=== PATIENT | female | born 1970 ===

== ENCOUNTER 2017-01-16 01:02 | Emergency (ER) | payer MEDICAID ==
[2017-01-16 01:08] VITALS: PULSE 80; RESP 16; O2SAT 99
--- NOTE | 2017-01-16 01:35 | C.PDOC ---
History Of Present Illness 46 year old female presents to the ED with complaints of "not feeling well" with a cold and cough beginning earlier today. Patient denies diarrhea, nausea, or vomiting. Chief Complaint (Nursing): Flu-like Symptoms History Per: Patient History/Exam Limitations: no limitations Onset/Duration Of Symptoms: Hrs Current Symptoms Are (Timing): Still Present Sick Contacts (Context): None Associated Symptoms: denies: Nausea, Vomiting, Diarrhea Recent travel outside of the [place]: No Past Medical History Reviewed: Historical Data, Nursing Documentation, Vital Signs Vital Signs: Last Vital Signs Temp 97.6 F 01/16/17 01:05 Pulse 80 01/16/17 01:05 Resp 16 01/16/17 01:05 BP 127/86 01/16/17 01:05 Pulse Ox 99 01/16/17 03:17 Family History: States: Unknown Family Hx - Social History Hx Alcohol Use: Yes Hx Substance Use: No - Immunization History Hx Tetanus Toxoid Vaccination: No Hx Influenza Vaccination: No Hx Pneumococcal Vaccination: No Review Of Systems Constitutional: Positive for: Weakness (generalized weakness ). Negative for: Fever, Chills Cardiovascular: Negative for: Chest Pain, Palpitations Respiratory: Positive for: Cough. Negative for: Shortness of Breath Gastrointestinal: Negative for: Nausea, Vomiting, Abdominal Pain Physical Exam - Physical Exam Appears: Non-toxic, No Acute Distress Skin: Warm, Dry Head: Atraumatic, Normacephalic Eye(s): bilateral: Normal Inspection, PERRL, EOMI Ear(s): Bilateral: Normal Nose: Normal, No Discharge Oral Mucosa: Moist Throat: Normal, No Erythema, No Exudate Neck: Supple Chest: Symmetrical, No Deformity Cardiovascular: Rhythm Regular, No Murmur Respiratory: Normal Breath Sounds, No Rales, No Rhonchi, No Wheezing Gastrointestinal/Abdominal: Soft, No Tenderness, No Distention, No Guarding, No Rebound Neurological/Psych: Oriented x3 ED Course And Treatment - Laboratory Results Result Diagrams: 01/16/17 02:28 01/16/17 02:28 O2 Sat by Pulse Oximetry: 99 (RA) Progress Note: CXR and labs were ordered. Disposition Counseled Patient/Family Regarding: Diagnosis - Disposition Referrals: [facility] [Outside] Disposition: HOME/ ROUTINE Disposition Time: 03:16 Condition: STABLE Prescriptions: Ibuprofen [Motrin] 400 mg PO Q6 #20 tab Instructions: Viral Syndrome (ED) Forms: [employer] (Congolese) - POA Present On Arrival: None - Clinical Impression Clinical Impression: Viral illness - Scribe Statement The provider has reviewed the documentation as recorded by the Scribjennifer Gillette All medical record entries made by the Scribe were at my direction and personally dictated by me. I have reviewed the chart and agree that the record accurately reflects my personal performance of the history, physical exam, medical decision making, and the department course for this patient. I have also personally directed, reviewed, and agree with the discharge instructions and disposition.
[2017-01-16 02:35] LABS: BASO % 0.7 % (0.0-2.0); EOS # 0.1 K/uL (0.0-0.7); HEMATOCRIT 35.7 % (34.0-47.0); LYMPH # 1.1 K/uL (1.0-4.3); LYMPH % 24.4 % (20.0-40.0); MEAN CORPUSCULAR HEMOGLOBIN 30.3 pg (27.0-31.0); MEAN CORPUSCULAR HGB CONC 34.4 g/dL (33.0-37.0); MEAN PLATELET VOLUME 8.1 fL (7.2-11.7); MONO # 0.4 K/uL (0.0-0.8); MONO % 9.6 % (0.0-10.0); RED CELL DISTRIBUTION WIDTH 13.2 % (11.5-14.5); WHITE BLOOD COUNT 4.6 K/uL (4.8-10.8)
[2017-01-16 02:38] LABS: CHLORIDE 100 mmol/L (98-107); POTASSIUM 3.6 mmol/L (3.6-5.2); SODIUM 141 mmol/L (132-148)
[2017-01-16 02:40] LABS: GFR AFRICAN-AMERICAN > 60
[2017-01-16 02:41] LABS: ALKALINE PHOSPHATASE 68 U/L (38-126); ALT/SGPT 26 U/L (9-52); AST/SGOT 20 U/L (14-36); BILIRUBIN,TOTAL 0.5 mg/dL (0.2-1.3); BLOOD UREA NITROGEN 13 mg/dL (7-17); CARBON DIOXIDE 26 mmol/L (22-30); GLUCOSE,RANDOM 89 mg/dL (65-105); TOTAL PROTEIN 8.1 g/dL (6.3-8.3)
[2017-01-16 02:42] LABS: CALCIUM 9.1 mg/dl (8.6-10.4)
[2017-01-16 02:44] LABS: RBC URINE 3 /hpf (0-3); URINE BILIRUBIN NEGATIVE (NEGATIVE); URINE BLOOD 2+ (NEGATIVE); URINE COLOR Yellow (YELLOW); URINE GLUCOSE (UA) NORMAL (Normal); URINE KETONE NEGATIVE (NEGATIVE); URINE LEUKOCYTE ESTERASE NEG Leu/uL (Negative); URINE PROTEIN NEGATIVE (NEGATIVE); URINE UROBILINOGEN NORMAL mg/dL (0.2-1.0); WBC URINE 2 /hpf (0-5)
[2017-01-16 04:01] VITALS: TEMP 98
[2017-01-16 05:17] VITALS: BP 132/82
--- NOTE | 2017-01-16 09:01 | RAD ---
HISTORY: flu-like Sx COMPARISON: No prior. TECHNIQUE: Chest PA and lateral FINDINGS: LUNGS: No active pulmonary disease. PLEURA: No significant pleural effusion identified. No pneumothorax apparent. CARDIOVASCULAR: Normal. OSSEOUS STRUCTURES: No significant abnormalities. VISUALIZED UPPER ABDOMEN: Normal. OTHER FINDINGS: None. IMPRESSION: No active disease.
== END 2017-01-16 05:17 | disposition home or self-care (01) ==
LOC: C.ER 01:02
DX: B34.9 Viral infection, unspecified (principal)

== ENCOUNTER 2017-01-20 23:29 | Emergency (ER) | payer MEDICAID ==
[2017-01-20 23:38] VITALS: RESP 18
--- NOTE | 2017-01-21 00:25 | C.PDOC ---
History Of Present Illness 46 y/o female c/o left buttock area discomfort for 3 days. Patient also reports body aches, weakness, and lethargy for last 4 days. Patient was seen in our ER Jan 16 and [facility] that same day with a few work ups. Patient was diagnosed with viral syndrome and recommended treatment with Advil and Motrin. Patient has not tried Motrin but only took one Tylenol tab yesterday and one tab of Tylenol today. Denies fever or chills. No vomiting or abdominal pain. Time Seen by Provider: 01/21/17 00:03 Chief Complaint (Nursing): Back Pain History Per: Patient History/Exam Limitations: no limitations Onset/Duration Of Symptoms: Days (3) Current Symptoms Are (Timing): Still Present Severity: Mild Additional History Per: Patient Past Medical History Reviewed: Historical Data, Nursing Documentation, Vital Signs Vital Signs: Last Vital Signs Temp 98.4 F 01/21/17 01:15 Pulse 86 01/21/17 01:15 Resp 18 01/21/17 01:15 BP 136/84 01/21/17 01:15 Pulse Ox 98 01/21/17 01:15 Family History: States: Unknown Family Hx - Social History Hx Alcohol Use: Yes Hx Substance Use: No - Immunization History Hx Tetanus Toxoid Vaccination: No Hx Influenza Vaccination: No Hx Pneumococcal Vaccination: No Review Of Systems Constitutional: Positive for: Weakness (Lethargy), Other (Body aches). Negative for: Fever, Chills Gastrointestinal: Negative for: Vomiting, Abdominal Pain Physical Exam - Physical Exam Appears: Non-toxic, Other (Mild distress, lethargic) Skin: Warm, Dry Head: Atraumatic, Normacephalic Extremity: Normal ROM, Tenderness (left buttock area), No Deformity Neurological/Psych: Oriented x3, Normal Motor, Normal Sensation Gait: Steady ED Course And Treatment O2 Sat by Pulse Oximetry: 99 (RA) Pulse Ox Interpretation: Normal Medical Decision Making Medical Decision Making: body aches, and L lower back/buttock discomfort for 4 days TWO ED evals on 01/16/17 were neg and dx viral syndrome and Rx'd Ibuprofen, but pt with no understanding of these evals, dx's, nor treatment plans. Has been taking no NSAIDS for past 2 days. Took one Tylenol tab yesterday and one today Exam today with malaise, L buttock/sacro-iliac discomfort, no sciatica Ice pack made and placed on L buttock/SI area pitcher of water @ bedside to encourage liberal fluids Motrin 600 mg PO Pt explained multiple times in Singaporean her present eval, dx, and treatment plan explained. pt then asked to verbalize understanding and repeat back the dx and tx plan which she was able to do with some prompting. Denies h/o psych illness/learning disability. Rested 1/2 hour in ED, and feels better, ok for d/c home. Disposition Doctor Will See Patient In The: Office Counseled Patient/Family Regarding: Studies Performed, Diagnosis - Disposition [facility]errals: [facility]Outside[facility] Disposition: HOME/ ROUTINE Disposition Time: 00:25 Condition: GOOD Additional Instructions: sigue tomando ibuprofeno/Advil 400-600 mg cada 6 horas rod necessario Sary marisela agua/te [place] 1/2 hora por hora, nada caliente. No kaden caliente. Sigue en [facility]- rod necessario en 1 semana. Estas sintomas typicamente diaz 7-11 davis. Que tenga paciencia cuando esta mejorando. Instructions: Viral Syndrome (ED), Piriformis Syndrome (ED) Forms: [employer] (Chilean) Print Language: CITIZ[place] OF [place] - Clinical Impression Clinical Impression: Low back strain, Viral syndrome - Scribe Statement The provider has reviewed the documentation as recorded by the Scribe Skip ortega All medical record entries made by the Scribe were at my direction and personally dictated by me. I have reviewed the chart and agree that the record accurately reflects my personal performance of the history, physical exam, medical decision making, and the department course for this patient. I have also personally directed, reviewed, and agree with the discharge instructions and disposition.
[2017-01-21 00:30] LABS: RBC URINE 1 /hpf (0-3); URINE BILIRUBIN NEGATIVE (NEGATIVE); URINE BLOOD NEGATIVE (NEGATIVE); URINE COLOR Yellow (YELLOW); URINE GLUCOSE (UA) NORMAL (Normal); URINE KETONE TRACE mg/dL (NEGATIVE); URINE LEUKOCYTE ESTERASE TRACE Leu/uL (Negative); URINE PROTEIN NEGATIVE (NEGATIVE); URINE UROBILINOGEN NORMAL mg/dL (0.2-1.0); WBC URINE 5 /hpf (0-5)
[2017-01-21 01:16] VITALS: BP 136/84; PULSE 86; TEMP 98.4
[2017-01-21 04:29] VITALS: O2SAT 99
== END 2017-01-21 01:16 | disposition home or self-care (01) ==
LOC: C.ER 23:29
DX: S39.012A Strain of muscle, fascia and tendon of lower back, initial encounter (principal); X58.XXXA Exposure to other specified factors, initial encounter; B34.9 Viral infection, unspecified